=== PATIENT | female | born 1945 | race Asian ===

== ENCOUNTER 2017-12-28 10:52 | Outpatient (CLI) | payer BC | END 2017-12-28 10:53 | disposition home or self-care (01) | LOC: BICMAMMO 10:52 | PROVIDERS: ATTEND Internal Medicine Rheumatology | DX: M81.0 Age-related osteoporosis without current pathological fracture (principal) | CPT/HCPCS: 77080 ==

== ENCOUNTER 2017-12-31 08:29 | Outpatient (CLI) | payer BC ==
--- NOTE | 2017-12-31 10:17 | MRI ---
MRI OF THE RIGHT SHOULDER: Date: 12-31-17 Provided Clinical History: Right shoulder pain. FINDINGS: There is low grade partial thickness dorsal surface tearing involving the distal conjoined tendon ara r the footplate. The components of rotator cuff appear otherwise intact. Rotator cuff muscular volume appears preserved. There is increased signal intensity and thickening of the distal intraarticular p ortions of the long heads biceps tendon likely reflecting tendinosis. There is apparent short segment split of the long head biceps tendon at the at the bicipital groove. The glenoid labrum and glenohum eral articular cartilage is suboptimally evaluated without joint distention and appear grossly normal . The amount of fluid within the glenohumeral joint appears physiologic. There is greater than physiolo gic subacromial subdeltoid bursal fluid. The coracoacromial ligament appears mildly thickened. There is lateral downsloping of the acromion which narrows the subacromial space. Acromioclavicular joint osteoarthrosis is demonstrated with mild mass effect upon the adjacent supras pinatus. No focal concerning regional marrow or loss of signal abnormality is evident. IMPRESSION: 1. Low grade partial thickness dorsal surface tear involving the distal conjoined tendons of the foot plate. 2. Greater than physiologic subacromial/subdeltoid bursal fluid which may reflect bursitis or an occu lt full thickness component of the described tear. 3. Acromioclavicular joint osteoarthrosis, lateral downsloping of the acromion and mildly thickened a ppearance to the coracoacromial ligament. Please correlate with concerns for impingement. 4. Intraarticular long head biceps tendinosis. Possible localized partial split tear of the biceps te ndon at the caudal aspect of the bicipital groove. POS: [facility]
== END 2017-12-31 08:30 | disposition home or self-care (01) ==
LOC: SCSMRI 08:29
PROVIDERS: ATTEND Orthopaedic Surgery
DX: M25.511 Pain in right shoulder (principal); S46.811A Strain of other muscles, fascia and tendons at shoulder and upper arm level, right arm, initial encounter; M19.011 Primary osteoarthritis, right shoulder; M75.91 Shoulder lesion, unspecified, right shoulder

== ENCOUNTER 2018-10-11 08:40 | Outpatient (CLI) | payer BC ==
[2018-10-11 09:12] LABS: Estimated GFR-MDRD - POC Greater than 90
--- NOTE | 2018-10-11 11:02 | CT ---
CT ABDOMEN AND PELVIS WITH CONTRAST: Comparison: None. History: Low abdominal pain, on and off for years with possible diverticulitis. Technique: Multiple contiguous axial images were obtained in a CT of the abdomen and pelvis with cont rast. PO contrast was administered. Coronal reformats were performed. FINDINGS: The gallbladder has been removed. The liver, kidneys, adrenal glands, spleen, and pancreas are unrema rkable. No free air, free fluid, or stranding changes are seen in the abdomen or pelvis. The patient is status post hysterectomy. There is scattered diverticula in the colon. The small bowel is unremarkable. The appendix is not definitely seen. No abdominal or pelvic lymphadenopathy are pre sent. Atherosclerotic calcifications are seen in the aorta. Degenerative changes and post-surgical changes are seen in the spine. The visualized inferior thorax and abdominal wall soft tissues are unremarkable. IMPRESSION: Diverticulosis without evidence of acute diverticulitis. POS: [facility]
== END 2018-10-11 08:41 | disposition home or self-care (01) ==
LOC: BICCT 08:40
PROVIDERS: ATTEND Internal Medicine Gastroenterology
DX: R10.9 Unspecified abdominal pain (principal); K57.30 Diverticulosis of large intestine without perforation or abscess without bleeding
CPT/HCPCS: 74177; 82565

== ENCOUNTER 2019-01-12 00:31 | Outpatient (CLI) | payer BC ==
[2019-01-12 15:25] LABS: #Eosinphils 0.2 thou/uL (0.0-0.7); #Lymphocytes 1.8 thou/uL (1.20-3.40); #Monocytes 0.4 thou/uL (0.11-0.59); #Neutrophils 2.8 thou/uL (1.40-6.50); %Basophils 0.7 % (0.0-1.0); %Eosinophils 3.2 % (0.0-10.0); %Lymphocytes 35.1 % (21.0-51.0); %Monocytes 6.9 % (0.0-10.0); %Neutrophils 54.2 % (42.0-75.0); Hemoglobin 13.7 g/dL (12.0-16.0); Mean Corpuscular HGB CONC 34.3 g/dL (32.0-36.0); Mean Corpuscular Hemoglobin 28.5 pg (27.0-31.0); Mean Corpuscular Volume 82.9 fL (78.0-98.0); Mean Platelet Volume 8.8 fL (7.4-10.4); Platelet Count 214 thou/uL (130-400); RBC Distribution Width 12.4 % (11.5-14.5); White Blood Cell (WBC) Count 5.1 thou/uL (4.8-10.8)
[2019-01-12 15:45] LABS: Anion Gap 13 mmol/L (10-20); BUN (Urea Nitrogen) 14 mg/dL (9.8-20.1); Calc. Creatinine Clearance 0 mL/min (70-130); Calcium 9.8 mg/dL (7.8-10.44); Carbon Dioxide 25 mmol/L (23-31); Chloride 103 mmol/L (98-107); Estimated GFR-MDRD 73; Glucose 166 mg/dL (83-110); Potassium 3.8 mmol/L (3.5-5.1); Sodium 137 mmol/L (136-145)
--- NOTE | 2019-01-12 17:21 | EKG ---
Test Reason : Blood Pressure : / mmHG Vent. Rate : 072 BPM Atrial Rate : 072 BPM P-R Int : 176 ms QRS Dur : 088 ms QT Int : 388 ms P-R-T Axes : 042 049 257 degrees QTc Int : 424 ms Normal sinus rhythm Abnormal ECG Confirmed by BREEZY CLANCY ([id number]) on 01/12/2019 5:20:38 PM Referred By: JEANARO Confirmed By:BREEZY CLANCY
== END 2019-01-12 00:32 | disposition home or self-care (01) ==
LOC: LABBT 00:31
PROVIDERS: ATTEND Orthopaedic Surgery
DX: Z01.818 Encounter for other preprocedural examination (principal); M75.101 Unspecified rotator cuff tear or rupture of right shoulder, not specified as traumatic
CPT/HCPCS: 80048; 85025; 93005; 93010

== ENCOUNTER 2019-01-14 07:34 | Day surgery (SDC) | payer BC ==
[2019-01-12 13:44] VITALS: BMI 24.3
[2019-01-14] MEDS ORDERED: Clindamycin/D5W 600 mg/50 ml Premix Bag ONE (08:02)
[2019-01-14] MEDS ORDERED: Midazolam HCl 2 mg/2 ml Vial ONE (08:31)
[2019-01-14] MEDS ORDERED: Fentanyl 100 MCG/2 ML VIAL ONE ×2 (08:32→09:42)
[2019-01-14] MEDS ORDERED: Scopolamine 1.5 mg/72 hour Patch ONE (08:50)
[2019-01-14] MEDS ORDERED: Zolpidem Tartrate 5 MG TAB PO PRN (08:55)
[2019-01-14] MEDS ORDERED: Ondansetron PF 4 MG/2 ML Vial IVP PRN (08:55)
[2019-01-14] MEDS ORDERED: traMADol HCl 50 MG TAB PO PRN ×2 (08:55)
[2019-01-14] MEDS ORDERED: Promethazine HCl 25 MG/ML VIAL IM PRN (08:55)
[2019-01-14] MEDS ORDERED: Fentanyl 100 MCG/2 ML VIAL IV PRN (08:55)
[2019-01-14] MEDS ORDERED: HYDROcodone/Acetaminophen 10/325 mg Tablet PO PRN ×2 (08:55)
[2019-01-14] MEDS ORDERED: Ropivacaine 0.2% 550 ML 550 ML NERVE BLCK SCH (08:55)
[2019-01-14] MEDS ORDERED: Ketorolac Tromethamine 30 MG/ML VIAL IVP PRN (08:55)
[2019-01-14] MEDS ORDERED: Bupivacaine/Epinephrine 0.25% 30 ML VIAL ONE (10:09)
--- NOTE | 2019-01-14 11:44 | OP ---
DATE OF PROCEDURE: 01/14/2019 PREOPERATIVE DIAGNOSIS: Right shoulder biceps tendon tearing and instability. POSTOPERATIVE DIAGNOSES: 1. Right shoulder biceps tendon tearing and instability. 2. Significant degenerative tear of superior labrum as well as top part of subscapularis and beginning of the supraspinatus. 3. A chondral lesion on the humeral head right before the biceps tendon was rubbing and the biceps tendon had an intratendinous tear at the same location. PROCEDURE PERFORMED: Right shoulder arthroscopy with debridement and shaving of the labrum, subscapularis, supraspinatus, and biceps tendon followed by open biceps tenodesis. 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 BLOOD LOSS: Minimal. COMPLICATIONS: None. ANESTHESIA: She had a block as well as a general anesthetic. IMPLANTS: A 7 x 23 Bio[employer]posite Bio-Tenodesis screw. DISPOSITION: She went to recovery room in stable condition. INDICATIONS: This is a 73-year-old female who has been dealing with right shoulder pain for over a year. We have tried injections, therapy, and activity modification and unfortunately, she continued to have pain. At this time, she opted to have surgery. DESCRIPTION OF PROCEDURE: After all verbal consent forms were explained and signed, she was taken to the operative room and at this time was given general anesthetic. Once the level of anesthesia was appropriate, she was taken back to the operating room and given a general anesthetic. She was then rolled into the left lateral decubitus position and all bony prominences were well-padded. Axillary roll was placed beneath the left axilla and a luis bag was inflated to hold in this position. The arm was taken through full range of motion, was found to have no lack of motion and was then suspended with 10 pounds in standard arthroscopic fashion. We then prepped and draped the right shoulder and right upper extremity in standard surgical fashion. Bony anatomical landmarks were drawn out and the subacromial space was infiltrated with Marcaine with epinephrine. Posterior portal was established. At this time, the scope was placed into the shoulder joint. Anterior working portal was made using a needle localization technique. Diagnostic arthroscopy commenced. There was significant degenerative superior labral tear with complete destabilization of the biceps anchor. There was a torn portion of the top of the subscapularis. There was also a tear at the beginning of the supraspinatus. These were all debrided with the shaver. Any brisk bleeding was then coagulated with the SERFAS energy. At this time, a green cannula was placed anteriorly and an 18-gauge needle was used to place a suture through the tendon. The tendon was cut off of its insertion using the scissors. At this time, also noted an area of scuffed cartilage on the humeral head that was directly adjacent to where there was an intertendinous tear of the biceps. Apparently, this area had been rubbing for quite some time. At this time, we then repositioned the camera into the subacromial space. Lateral working portal was made and all the bursa was removed from off the underlying rotator cuff. There was no significant tearing of the rotator cuff noted. The SERFAS energy was used to remove the soft tissue from the undersurface of the acromion. The CA ligament was not taken down and no bony acromioplasty was performed. At this time, the scope was removed. We then proceeded with our open biceps tenodesis. Fifteen blade was used to cut down through skin. Bovie was used to coagulate any brisk venous bleeding. Deltoid fascia was opened sharply. Finger dissection was used in line with the fibers to get down to the underlying transverse humeral ligament. At this time, we then opened up the transverse humeral ligament and pulled the biceps out. We then sewed our biceps cut off the intra-articular portion, placed our pin, reamed and then placed a 7 x 23 Bio[employer]posite Bio-Tenodesis screw in standard fashion. Sutures were tied over top of this and at this time, the arm was taken through full range of motion and the tendon was found to be stable. We then thoroughly irrigated and dried our wound. We then closed our deltoid fascia with a running Vicryl, 2-0 Vicryl and nylon sutures were then used on skin. A bulky sterile dressing was applied. She was awakened, taken to recovery room in stable condition. All counts were correct at the end of the case. She did receive preoperative IV antibiotics. Job ID: [id number]
[2019-01-14] MEDS ORDERED: Ropivacaine 0.2% HCl/PF (40 MG/20 ML VIAL) ONE (13:58)
[2019-01-14] MEDS ORDERED: Ropivacaine 0.5% HCl/PF (150 MG/30 ML VIAL) ONE (13:58)
[2019-01-14] MEDS ORDERED: ePHEDrine 50 MG/ML VIAL ONE (14:52)
[2019-01-14] MEDS ORDERED: Rocuronium Bromide 10 MG/ML (10ML VIAL) ONE (14:52)
[2019-01-14] MEDS ORDERED: PHENYLEPHRINE-NS 100 MCG/ML 10 ML SYRINGE ONE (14:52)
[2019-01-14] MEDS ORDERED: Glycopyrrolate 0.2 MG/ML 5 ML SYRINGE ONE (14:52)
[2019-01-14] MEDS ORDERED: Dexamethasone 20 MG/5 ML VIAL ONE (14:52)
[2019-01-14] MEDS ORDERED: Ketorolac Tromethamine 30 MG/ML VIAL ONE (14:52)
[2019-01-14] MEDS ORDERED: PROPOFOL 200 MG/20 ML VIAL ONE (14:52)
[2019-01-14] MEDS ORDERED: Lidocaine 1% PF 5 ML VIAL ONE (14:52)
[2019-01-14] MEDS ORDERED: Ondansetron PF 4 MG/2 ML Vial ONE (14:52)
== END 2019-01-14 15:05 | disposition home or self-care (01) ==
LOC: SDC 07:34
PROVIDERS: ATTEND Orthopaedic Surgery
PROC: 0RBJ4ZZ Excision of Right Shoulder Joint, Percutaneous Endoscopic Approach (ICD-10-PCS; principal; 2019-01-14)
PROC: 0LS10ZZ Reposition Right Shoulder Tendon, Open Approach (ICD-10-PCS; principal; 2019-01-14)
DX: M75.101 Unspecified rotator cuff tear or rupture of right shoulder, not specified as traumatic (principal); S43.431A Superior glenoid labrum lesion of right shoulder, initial encounter; Z88.0 Allergy status to penicillin; Z79.1 Long term (current) use of non-steroidal anti-inflammatories (NSAID); Z79.82 Long term (current) use of aspirin; Z79.899 Other long term (current) drug therapy
CPT/HCPCS: A4306; C1713; J1100; J1885; J2001; J2250; J2405; J2704; J2795; J3010; J3490

== ENCOUNTER 2020-06-04 07:34 | Outpatient (CLI) | payer BC ==
--- NOTE | 2020-06-04 10:52 | MRI ---
EXAM: MRI of the temporomandibular joints without contrast HISTORY: Jaw pain COMPARISON: None TECHNIQUE: Multiplanar multisequence MR images were obtained of the temporomandibular joints without IV contrast. This was performed with the mouth open and closed. FINDINGS: This exam is limited secondary to motion artifact. Right temporomandibular joint: Closed mouth views: A normal appearing articular disc is unable to be seen. No significant degenerative changes seen. Open mouth views: There is an appropriate subluxation of the condyle out of the temporomandibular joint. A normal-appearing articular disc was unable to be seen. Left temporomandibular joint: Closed mouth views: The articular disc is interposed between the eminence and the condyle of the mandible. No significant degenerative changes seen. Open mouth views: There is an appropriate subluxation of the condyle out of the temporomandibular joint. The articular disc remains interposed between the eminence and the condyle of the mandible. No significant intracranial abnormality appreciated. IMPRESSION: Nonvisualization of a normal appearing right temporomandibular joint articular disc. This exam is mccall ited secondary to significant motion artifact.
== END 2020-06-04 07:35 | disposition home or self-care (01) ==
LOC: TBSIIMAG 07:34
PROVIDERS: ATTEND Internal Medicine Rheumatology
DX: R68.84 Jaw pain (principal); Z79.899 Other long term (current) drug therapy
CPT/HCPCS: 70336

== ENCOUNTER 2021-01-08 13:59 | Outpatient (CLI) | payer BC ==
--- NOTE | 2021-01-08 14:38 | RAD ---
CERVICAL SPINE SERIES THREE VIEWS: 01/08/21 HISTORY: Neck pain. No injury. Vertebral bodies maintain normal height. Degenerative osteophytic changes with very mild disc narrowi ng at C3-4, slightly more pronounced disc narrowing at C4-5 with a minimal retrolisthesis at this lev el. Moderate disc narrowing at C5-6. Degenerative facet changes are present. No soft tissue swelling. IMPRESSION: Moderate arthritic changes of the spine. POS: [facility]
== END 2021-01-08 14:00 | disposition home or self-care (01) ==
LOC: SCSRAD 13:59
PROVIDERS: ATTEND Internal Medicine Rheumatology
DX: M54.2 Cervicalgia (principal); M47.812 Spondylosis without myelopathy or radiculopathy, cervical region
CPT/HCPCS: 72040